=== PATIENT | male | born 2000 | race Caucasian/White ===

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

== ENCOUNTER 2019-05-14 14:59 | Emergency (ER) | payer OTHER ==
[~2019-05-14] VITALS: Ht 185.4 cm; Wt 99.8 kg
[2019-05-14] MEDS ORDERED: CALLUS REMOVER1 EACH TOP (17:24)
== END 2019-05-14 17:36 | disposition home or self-care (01) ==
LOC: ER 14:59
DX: L84 Corns and callosities (principal); M79.672 Pain in left foot

== ENCOUNTER 2019-08-31 22:51 | Emergency (ER) | payer OTHER ==
[~2019-08-31] VITALS: Ht 185.4 cm; Wt 99.8 kg
[~2019-08-31 22:51] MED LIST changes: +CALLUS REMOVER1 EACH TOP
[2019-09-01] MEDS ORDERED: ZYNCOF 20-400120 ML PO (03:02)
[2019-09-01] MEDS ORDERED: PHENAGIL TABLE1 EACH PO (03:02)
== END 2019-09-01 03:08 | disposition home or self-care (01) ==
LOC: ER 22:51
DX: R50.9 Fever, unspecified (principal)

== ENCOUNTER 2020-08-29 07:56 | Emergency (ER) | payer OTHER ==
[~2020-08-29] VITALS: Ht 185.4 cm; Wt 99.8 kg
[~2020-08-29 07:56] MED LIST changes: +PHENAGIL TABLE1 EACH PO; +ZYNCOF 20-400120 ML PO
[2020-08-29] MEDS ORDERED: AUGMENTIN XR 11 EACH PO (10:14)
[2020-08-29] MEDS ORDERED: MUCINEX D ER 11 EACH PO (10:14)
== END 2020-08-29 10:24 | disposition home or self-care (01) ==
LOC: EMR PED 07:56
DX: J06.9 Acute upper respiratory infection, unspecified (principal); J31.2 Chronic pharyngitis; Z03.818 Encounter for observation for suspected exposure to other biological agents ruled out

== ENCOUNTER 2020-12-25 09:10 | Emergency (ER) | payer OTHER ==
[~2020-12-25] VITALS: Ht 185.4 cm; Wt 99.8 kg
[~2020-12-25 09:10] MED LIST changes: +AUGMENTIN XR 11 EACH PO; +MUCINEX D ER 11 EACH PO
[2020-12-25] MEDS ORDERED: DICLOFENAC POTA50 MG PO (10:39)
== END 2020-12-25 10:45 | disposition home or self-care (01) ==
LOC: ER 09:10
DX: S93.692A Other sprain of left foot, initial encounter (principal); X50.0XXA Overexertion from strenuous movement or load, initial encounter; Y93.89 Activity, other specified; Y92.89 Other specified places as the place of occurrence of the external cause; Y99.8 Other external cause status

== ENCOUNTER 2022-01-14 23:01 | Emergency (ER) | payer OTHER ==
[~2022-01-14] VITALS: Ht 190.5 cm; Wt 108.9 kg
[~2022-01-14 23:01] MED LIST changes: +DICLOFENAC POTA50 MG PO
[2022-01-15] MEDS ORDERED: PEPCID40 MG PO (08:33)
[2022-01-15] MEDS ORDERED: ZOFRAN8 MG PO (08:33)
== END 2022-01-15 08:44 ==
LOC: ER 23:01
DX: K52.9 Noninfective gastroenteritis and colitis, unspecified (principal); Z20.822 Contact with and (suspected) exposure to COVID-19

== ENCOUNTER 2022-12-28 18:48 | Emergency (ER) | payer OTHER ==
[~2022-12-28] VITALS: Ht 185.4 cm; Wt 113.4 kg
[~2022-12-28 18:48] MED LIST changes: +PEPCID40 MG PO; +ZOFRAN8 MG PO
== END 2022-12-28 20:51 | disposition home or self-care (01) ==
LOC: ER 18:48
DX: U07.1 COVID-19 (principal)

== ENCOUNTER 2024-02-24 18:30 | Emergency (ER) | payer OTHER ==
[~2024-02-24] VITALS: Ht 188 cm; Wt 113.4 kg
[2024-02-24 19:50] LABS: HEMATOCRIT 41.9 % (39.0-48.0); HEMOGLOBIN 14.7 g/dL (13-16.00); MEAN CELL VOLUME 82.1 fL (80.0-100.00); MEAN CORPUSCULAR HEMOGLOBIN 28.9 pg (27.00-32.0); MEAN CORPUSCULAR HGB CONC 35.1 g/dl (32.0-36.0); PLATELET COUNT 282 K/uL (150-450); RED BLOOD COUNT 5.11 M/uL (4.00-6.00); RED CELL DISTRIBUTION WIDTH 13.3 % (11.5-14.5)
== END 2024-02-24 20:06 | disposition home or self-care (01) ==
LOC: ER 18:31
PROVIDERS: General Practice
DX: L70.9 Acne, unspecified (principal); Z87.09 Personal history of other diseases of the respiratory system

== ENCOUNTER 2024-07-01 10:11 | Emergency (ER) | payer OTHER ==
[~2024-07-01] VITALS: Ht 188 cm; Wt 108.9 kg
[2024-07-01] MEDS ORDERED: ORPHENADRINE CITRATE 30 MG/ML AMPUL IM ONE (10:30)
[2024-07-01] MEDS ORDERED: KETOROLAC TROMETHAMINE 30 MG VIAL IM ONE (10:30)
[2024-07-01 11:13] LABS: HEMATOCRIT 45.2 % (39.0-48.0); HEMOGLOBIN 15.7 g/dL (13-16.00); MEAN CELL VOLUME 82.4 fL (80.0-100.00); MEAN CORPUSCULAR HEMOGLOBIN 28.7 pg (27.00-32.0); MEAN CORPUSCULAR HGB CONC 34.8 g/dl (32.0-36.0); PLATELET COUNT 256 K/uL (150-450); RED BLOOD COUNT 5.48 M/uL (4.00-6.00); RED CELL DISTRIBUTION WIDTH 13.1 % (11.5-14.5)
[2024-07-01] MEDS ORDERED: DEXAMETHASONE SODIUM PHOSPHATE 4 MG/ML VIAL IM ONE (11:30)
== END 2024-07-01 12:42 | disposition home or self-care (01) ==
LOC: ER 10:13
PROVIDERS: General Practice
DX: J10.1 Influenza due to other identified influenza virus with other respiratory manifestations (principal); Z20.822 Contact with and (suspected) exposure to COVID-19

== ENCOUNTER 2024-12-15 21:06 | Emergency (ER) | payer OTHER ==
[~2024-12-15] VITALS: Ht 188 cm; Wt 113.4 kg
[2024-12-15] MEDS ORDERED: CEFTRIAXONE SODIUM 1,000 MG VIAL IM STA (22:44)
[2024-12-15] MEDS ORDERED: KETOROLAC TROMETHAMINE 30 MG VIAL IM STA (22:44)
[2024-12-15] MEDS ORDERED: CEFTRIAXONE SODIUM 1,000 MG VIAL ONE (23:33)
[2024-12-15] MEDS ORDERED: KETOROLAC TROMETHAMINE 30 MG VIAL ONE (23:33)
[2024-12-15] MEDS ORDERED: LIDOCAINE HCL 1% 10ML VIAL ONE (23:36)
== END 2024-12-16 00:17 | disposition home or self-care (01) ==
LOC: ER 21:24
DX: J03.90 Acute tonsillitis, unspecified (principal)

== ENCOUNTER → 2025-07-01 | Emergency (ER) | payer OTHER ==
[~2025-07-01] VITALS: Ht 188 cm; Wt 113.4 kg
[~2025-07-01] MED LIST changes: +KETOROLAC TROMETHAMINE 30 MG VIAL IM ONE
== END | disposition home or self-care (01) ==
LOC: ER 07:21
DX: S93.491A Sprain of other ligament of right ankle, initial encounter (principal); W18.39XA Other fall on same level, initial encounter; Y93.89 Activity, other specified; Y92.89 Other specified places as the place of occurrence of the external cause; Y99.9 Unspecified external cause status